=== PATIENT | male | born 1995 | race Caucasian/White ===

== ENCOUNTER 2020-09-22 12:22 | Emergency (ER) | payer MEDICAID ==
[~2020-09-22] VITALS: Ht 177.8 cm; Wt 102.3 kg
[2020-09-22 13:24] VITALS: BP 123/80; PULSE 83
== END 2020-09-22 13:23 | disposition home or self-care (01) ==
LOC: COL.ER 12:22
DX: S61.412A Laceration without foreign body of left hand, initial encounter (principal); F17.210 Nicotine dependence, cigarettes, uncomplicated; Z23 Encounter for immunization; W26.9XXA Contact with unspecified sharp object(s), initial encounter; Y93.89 Activity, other specified; Y99.0 Civilian activity done for income or pay